=== PATIENT | male | born 1955 | race Caucasian/White ===

== ENCOUNTER 2019-10-19 11:34 | Emergency (ER) | payer MEDICARE, BC ==
[~2019-10-19] VITALS: Ht 177.8 cm; Wt 70.3 kg
[~2019-10-19 11:34] MED LIST: ALBIPROI INH; AMOCLA875 PO; DOXY100 PO; HYDGUAL120 PO; PRED20 PO
[2019-10-19 12:23] LABS: BASOPHILS ABSOLUTE AUTO 0.11 K/mm3 (0.00-0.23); BASOPHILS PERCENT AUTO 1 % (0-2); EOSINOPHILS ABSOLUTE AUTO 0.08 K/mm3 (0.00-0.68); EOSINOPHILS PERCENT AUTO 1 % (0-6); Hematocrit 48.7 % (37.0-53.0); IMMATURE GRAN ABSOLUTE AUTO 0.08 K/mm3 (0.00-0.10); IMMATURE GRAN PERCENT AUTO 1 % (0-1); LYMPHOCYTES ABSOLUTE AUTO 2.19 K/mm3 (0.84-5.20); LYMPHOCYTES PERCENT AUTO 13 % (21-46); MONOCYTES PERCENT AUTO 8 % (4-13); Mean Corpuscular HGB 29.5 pg (26.0-34.0); Mean Corpuscular HGB Conc 32.9 g/dL (31.5-36.5); Mean Corpuscular Volume 90 fL (80-100); Mean Platelet Volume 10.4 fL (9.1-12.4); NEUTROPHILS ABSOLUTE AUTO 13.11 K/mm3 (1.96-9.15); NEUTROPHILS PERCENT AUTO 77 % (41-73); Platelet Count 305 K/mm3 (150-400); RDW Standard Deviation 46.1 fL (35.1-46.3); Red Blood Cell Count 5.42 M/mm3 (4.30-5.90); White Blood Cell Count 16.97 K/mm3 (4.00-11.30)
[2019-10-19 12:53] LABS: Alanine Aminotransfer (ALT/SGP 20 U/L (12-78); Albumin, Blood 3.9 g/dL (3.4-5.0); Alk Phos 91 U/L (50-136); Anion Gap 8 mmol/L (6-16); Aspartate Aminotrans (AST/SGOT 13 U/L (12-37); Bilirubin, Total 0.6 mg/dL (0.1-1.0); Blood Urea Nitrogen 17 mg/dL (8-24); Bun/Creatinine Ratio 21.1 (12.0-20.0); CO2, Blood 25 mmol/L (21-32); Calcium, Blood 8.6 mg/dL (8.5-10.1); Chloride, Blood 108 mmol/L (98-108); Creatinine, Blood 0.81 mg/dL (0.60-1.20); Glomerular Filtration Rate >60 (60-); Glucose, Blood 126 mg/dL (70-99); Potassium, Blood 3.8 mmol/L (3.5-5.5); Sodium, Blood 141 mmol/L (136-145); Total Protein, Blood 7.9 g/dL (6.4-8.2)
[2019-10-19] MEDS ORDERED: BUPR150ER PO (14:11)
[2019-10-19] MEDS ORDERED: PROZAC20 MG PO (14:12)
[2019-10-19] MEDS ORDERED: TIOT18 INH (14:12)
[2019-10-19] MEDS ORDERED: FLUTICASONE-SA1 EAC9 (14:13)
[2019-10-19] MEDS ORDERED: Ventolin/Prove6.7 GM INH (14:13)
[2019-10-19] MEDS ORDERED: Cleocin HCl150 MG PO (15:10)
[2019-10-19] MEDS ORDERED: Mucinex600 MG PO (15:10)
[2019-10-19] MEDS ORDERED: FLUT.05NI (15:10)
== END 2019-10-19 15:21 | disposition home or self-care (01) ==
LOC: ER 11:34
PROVIDERS: Physician Assistant
DX: L03.213 Periorbital cellulitis (principal); Z88.5 Allergy status to narcotic agent; Z79.899 Other long term (current) drug therapy; J44.9 Chronic obstructive pulmonary disease, unspecified; Z87.891 Personal history of nicotine dependence
CPT/HCPCS: 36415; 70487; 80053; 85025; 96365-59; 99284-25; Q9967

== ENCOUNTER → 2022-04-13 | Outpatient (CLI) | payer BC, MEDICARE ==
[~2022-04-13] MED LIST changes: +BUPR150ER PO; +Cleocin HCl150 MG PO; +FLUT.05NI; +FLUTICASONE-SA1 EAC9; +Mucinex600 MG PO; +PROZAC20 MG PO; +TIOT18 INH; +Ventolin/Prove6.7 GM INH
[2022-04-13 18:22] LABS: Influenza A, PCR NEGATIVE (NEGATIVE); Influenza B, PCR NEGATIVE (NEGATIVE); Resp Syncytial Virus, PCR NEGATIVE (NEGATIVE); SARS-Cov-2 (COVID-19) PCR, MMC NEGATIVE (NEGATIVE)
== END | disposition home or self-care (01) ==
LOC: LAB SHORT 15:34 → LAB 15:34
PROVIDERS: Family Medicine
DX: R50.9 Fever, unspecified (principal); R05.9 Cough, unspecified
CPT/HCPCS: 0241U